=== PATIENT | female | born 1960 | race Caucasian/White ===

== ENCOUNTER 2016-10-11 18:58 | Emergency (ER) | payer OTHER ==
[~2016-10-11] VITALS: Ht 152.4 cm; Wt 80.0 kg
[2016-10-11] MEDS ORDERED: ASPIRIN 325 MG TAB PO STA (19:06)
[2016-10-11 19:11] VITALS: Ht 152.4 cm; Wt 80.0 kg
[2016-10-11] MEDS ORDERED: LORAZEPAM 2 MG INJ IV ONE (19:30)
[2016-10-11 19:33] LABS: BASOPHIL # 0.1 10^3/ul (0.0-0.1); BASOPHILS % 1.3 % (0.0-2.0); EOSINOPHILS # 0.2 10^3/ul (0.0-0.5); EOSINOPHILS % 2.3 % (0.0-7.0); HEMATOCRIT 34.4 % (37.0-47.0); HEMOGLOBIN 11.3 g/dl (12.0-16.0); LYMPHOCYTES # 3.7 10^3/ul (0.8-2.9); LYMPHOCYTES % 42.4 % (15.0-51.0); MEAN CORPUSCULAR HEMOGLOBIN 29.7 pg (29.0-33.0); MEAN CORPUSCULAR HGB CONC 32.8 g/dl (32.0-37.0); MEAN CORPUSCULAR VOLUME 90.3 fl (82.0-101.0); MEAN PLATELET VOLUME 10.3 fl (7.4-10.4); MONOCYTE # 0.6 10^3/ul (0.3-0.9); MONOCYTES % 7.2 % (0.0-11.0); NEUTROPHILS % 46.3 % (39.0-77.0); PLATELET COUNT 308 10^3/UL (140-415); RED BLOOD COUNT 3.81 10^6/ul (4.20-5.40); RED CELL DISTRIBUTION WIDTH 13.1 % (11.5-14.5); WHITE BLOOD COUNT 8.6 10^3/ul (4.8-10.8)
--- NOTE | 2016-10-11 19:47 | ERD ---
ER Documentation Chief Complaint Date/Time DATE: 10/11/16 TIME: 19:45 Chief Complaint CP, SOB right upper chest radiating to back x 30 min HPI 56-year-old female is brought in for chest pain shortness of breath within the chest pain being described as a sharp pain radiates to her back for approximately 30 minutes. She has a history of anxiety and has recently run out of her Ativan pills. She has the relative of a staff member here. She believes she may just be anxious and she has run out of her medication and this hospitals where her a year ago in this very emergency room. She has no nausea or vomiting. States that she has had these symptoms before with anxiety. She has no hypertension, no diabetes no high cholesterol has never smoked. ROS All systems reviewed and are negative except as per history of present illness. Medications Home Meds Active Scripts Lorazepam* (Lorazepam*) 1 Mg Tablet, 1 MG PO HS Y for ANXIETY, #12 TAB Prov:MURALI BENITO DO 10/11/16 Allergies Allergies: Coded Allergies: No Known Allergy (Unverified , 10/11/16) PMhx/Soc Hx Alcohol Use: No Hx Substance Use: No Hx Tobacco Use: No Smoking Status: Unknown if ever smoked Physical Exam Vitals Vital Signs Date Time Temp Pulse Resp B/P Pulse Ox O2 Delivery O2 Flow Rate FiO2 10/11/16 19:21 Nasal Cannula 2 10/11/16 19:11 98.1 85 20 118/62 99 Physical Exam Const: [] Mild distress, tearful Head: Atraumatic Eyes: Normal Conjunctiva ENT: Normal External Ears, Nose and Mouth. Neck: Full range of motion..~ No meningismus. Resp: Clear to auscultation bilaterally Cardio: Regular rate and rhythm, no murmurs Abd: Soft, non tender, non distended. Normal bowel sounds Skin: No petechiae or rashes Back: No midline or flank tenderness Ext: No cyanosis, or edema Neur: Awake and alert and oriented 3, no focal deficits Psych: Appears anxious and tearful Result Diagram: 10/11/16191310/11/161913 Results 24 hrs Laboratory Tests Test 10/11/16 19:14 White Blood Count 8.610^3/ul Red Blood Count 3.8110^6/ul Hemoglobin 11.3g/dl Hematocrit 34.4% Mean Corpuscular Volume 90.3fl Mean Corpuscular Hemoglobin 29.7pg Mean Corpuscular Hemoglobin Concent 32.8g/dl Red Cell Distribution Width 13.1% Platelet Count 83169^3/UL Mean Platelet Volume 10.3fl Neutrophils % 46.3% Lymphocytes % 42.4% Monocytes % 7.2% Eosinophils % 2.3% Basophils % 1.3% Nucleated Red Blood Cells % 0.0/100WBC Neutrophils # (Manual) 410^3/ul Lymphocytes # 3.710^3/ul Monocytes # 0.610^3/ul Eosinophils # 0.210^3/ul Basophils # 0.110^3/ul Nucleated Red Blood Cells # 0.010^3/ul Prothrombin Time 11.7Sec Prothrombin Time Ratio 0.9 INR International Normalized Ratio 0.86 Activated Partial Thromboplast Time 28.1Sec Sodium Level 140mmol/L Potassium Level 4.2mmol/L Chloride Level 103mmol/L Carbon Dioxide Level 26mmol/L Anion Gap 15 Blood Urea Nitrogen 21mg/dl Creatinine 0.86mg/dl Glucose Level 95mg/dl Calcium Level 9.6mg/dl Troponin I < 0.012ng/ml B-Type Natriuretic Peptide 143PG/ML Current Medications Medications (Trade) Dose Ordered Sig/Aster Route PRN Reason Start Time Stop Time Status Last Admin Dose Admin Aspirin (Aspirin) 325 mg ONCE STAT PO 10/11/16 19:06 10/11/16 19:08 DC 10/11/16 19:33 Lorazepam (Ativan) 1 mg ONCE ONCE IV 10/11/16 19:30 10/11/16 19:31 DC 10/11/16 19:33 Ketorolac Tromethamine (Toradol) 30 mg ONCE STAT IV 10/11/16 20:51 10/11/16 20:52 DC 10/11/16 21:05 Procedures/MDM Atypical chest pain in a patient with no risk factors except for family history of heart disease. After he received Ativan and her shortness of breath resolved and she felt much better. She still felt some residual shortness soreness of her right lateral chest wall. EKG did have mild T-wave inversions and so I offered the patient and family admission. The nurse was related to the family spoke with the family. The patient declines admission for troponin trending R to follow-up with her primary care doctor with whom she has an appointment tomorrow or the next day. I am going to recommend an echocardiogram as an outpatient. Also had a single reading of systolic of 155 in ER. Discussed hypertension. She will follow-up with her PCP, no indication for medicine at this time. I am prescribing the patient Ativan, 12 pills to last until she can get a new prescription from her primary care doctor. EKG interpretation: Normal sinus rhythm rate of 82, normal axis, very slight T- wave inversions in leads V3 and V4, normal intervals. Chest x-ray interpretation: I see no acute process, no widened mediastinum, no infiltrates, no palmar edema, no fractures environmental monitoring specialist interpretation: Normal sinus rhythm without arrhythmia Departure Diagnosis: Primary Impression: Chest pain Additional Impressions: Anxiety Hypertension Normocytic anemia Condition: Stable MURALI BENITO DO Oct 11, 2016 19:47
[2016-10-11 19:49] LABS: INR 0.86; PROTIME 11.7 Sec (12.2-14.2); PT RATIO 0.9
[2016-10-11 19:50] LABS: PARTIAL THROMBOPLASTIN TIME 28.1 Sec (25.0-35.0)
[2016-10-11 19:56] LABS: ANION GAP 15 (8-16); BLOOD UREA NITROGEN 21 mg/dl (7-20); CALCIUM 9.6 mg/dl (8.4-10.2); CARBON DIOXIDE 26 mmol/L (21-31); CHLORIDE 103 mmol/L (97-110); CREATININE 0.86 mg/dl (0.44-1.00); GLUCOSE 95 mg/dl (70-220); POTASSIUM 4.2 mmol/L (3.5-5.1); SODIUM 140 mmol/L (135-144)
--- NOTE | 2016-10-11 19:59 | RADRPT ---
PROCEDURE: XR Chest. CLINICAL INDICATION: Chest pain. TECHNIQUE: Single frontal view of the chest. COMPARISON: None. FINDINGS: Heart size is at upper limits of normal. The lungs are clear. No signs of pleural fluid or pneumotho rax are seen. The osseous structures and soft tissues are unremarkable. IMPRESSION: No evidence for active cardiopulmonary disease. RPTAT: [facility] Physician Michael Date Time Electronically viewed and signed by Physician Michael on 10/11/2016 19:59 RS/
[2016-10-11 20:07] LABS: B-TYPE NATRIURETIC PEPTIDE 143 PG/ML (0-125)
[2016-10-11 20:08] LABS: TROPONIN-I < 0.012 ng/ml (0.00-0.12)
[2016-10-11] MEDS ORDERED: LORA1TAB PO (20:34)
[2016-10-11] MEDS ORDERED: KETOROLAC 30 MG INJ IV STA (20:51)
[2016-10-11 21:18] VITALS: BP 150/58; PULSE 64; RESP 18; TEMP 98.4
== END 2016-10-11 21:20 | disposition home or self-care (01) ==
LOC: E/R 18:58
DX: R07.9 Chest pain, unspecified (principal); R40.2252 Coma scale, best verbal response, oriented, at arrival to emergency department; F41.9 Anxiety disorder, unspecified; I10 Essential (primary) hypertension; D64.9 Anemia, unspecified; R40.2142 Coma scale, eyes open, spontaneous, at arrival to emergency department; R40.2362 Coma scale, best motor response, obeys commands, at arrival to emergency department
CPT/HCPCS: 36415; 71010; 80048; 83880; 84484; 85025; 85610; 85730; 93005; 96374; 96375; J1885; J2060; Z7502; Z7610